=== PATIENT | female | born 1995 | race American Indian/Alaskan Native ===

== ENCOUNTER 2019-11-23 14:49 | Outpatient (CLI) | payer OTHER ==
[2019-11-23] MEDS ORDERED: KEFLEX500 MG PO (19:17)
== END 2019-11-23 20:05 | disposition home or self-care (01) ==
LOC: OBS/DEL 14:49
PROVIDERS: ATTEND Obstetrics & Gynecology
DX: O47.1 False labor at or after 37 completed weeks of gestation (principal); O99.013 Anemia complicating pregnancy, third trimester; D57.1 Sickle-cell disease without crisis